=== PATIENT | male | born 1995 | race Caucasian/White ===

== ENCOUNTER 2018-11-23 05:46 | Day surgery (SDC) | payer SELFPAY, OTHER ==
[2018-11-23] VITALS (7 sets, daily range): BP systolic 108–127; BP diastolic 48–82; PULSE 71–108; RESP 14–16; TEMP 36.2–36.8; O2SAT 92–99; BMI 28.4
--- NOTE | 2018-11-23 07:25 | RAD_ITS ---
STUDY: X-RAY - RIGHT ANKLE REASON FOR EXAM: Male, 23 years old. ORIF of a trimalleolar fracture TECHNIQUE: 14 intraoperative fluoroscopic view(s) of the ankle. COMPARISON: None. FINDINGS: 14 Limited films were performed in the operating room as patient is undergone open reduction internal fixation of a trimalleolar fracture of the right ankle. After hardware has been placed, alignment at the fracture sites is anatomic, follow-up recommended to assure complete osseous union. RAD/Ankle min 3 Views IMPRESSION: ORIF of a trimalleolar fracture in the right ankle Electronically Signed: Ivan Ferrara MD at 11:35 EDT , Service support ,
[2018-11-23] MEDS: Cefazolin 2 GM in 0.9% Normal Saline 100 ML IV (07:46)
[2018-11-23] MEDS: Bupiv/Epi 0.5% Mpf 30 ML Vial (11:42)
--- NOTE | 2018-11-23 11:52 | RAD_ITS ---
STUDY: X-RAY - RIGHT ANKLE REASON FOR EXAM: Male, 23 years old. Postop from ORIF TECHNIQUE: 3 view(s) of the ankle. COMPARISON: None. FINDINGS: 3 views of the right ankle performed after patient has undergone ORIF of a trimalleolar fracture. Surgical hardware is intact and free of complication. Alignment at the fracture sites is anatomic. No demonstrated complication. Fiberglass splint supports the ankle. RAD/Ankle min 3 Views IMPRESSION: Status post ORIF of a trimalleolar right ankle fracture. Follow-up recommended to assure complete osseous union Electronically Signed: Ivan Ferrara MD at 12:46 EDT , Service support ,
--- NOTE | 2018-11-23 11:55 | DCINST_ITS ---
Discharge Activity: May Not Drive, May not drive while taking narcotic pain medications., May Not Shower, Use Walker, Use Crutches Ice area for (Minutes): 20 - Apply ice behing right knee 20 minutes of each hour while awake Weight Bearing Status: No weight bearing Keep extremity elevated above heart level: Operative Extremity Call your doctor if your incision/area has: Sudden Increased Bleeding Call your doctor if you observe: Fever of 101 or Higher, Numbness or Tingling, Change in Color, Shortness of breath, Dizziness, Chest pain, Increased palpitations (irregular heartbeat), Calf discomfort, Uncontrolled pain Cleanse incision/area with: Keep Dressing Clean & Dry Allergies/Adverse Reactions: Allergies No Known Allergies Allergy (Verified 11/15/18 08:17) Medications to take at Discharge Naproxen Sodium [Aleve] 220 mg PO PRN PRN 11/15/18 Acetaminophen 1,000 mg PO Q8 #30 tab 11/23/18 Aspirin 325 mg PO DAILY@0800 #28 tab 11/23/18 traMADol [Ultram] 50 mg PO Q4H PRN PRN 7 Days #28 tab 11/23/18 The following prescriptions were given: Acetaminophen 1,000 mg PO Q8 #30 tab Prescription Printed Aspirin 325 mg PO DAILY@0800 #28 tab Prescription Printed traMADol [Ultram] 50 mg PO Q4H PRN PRN 7 Days #28 tab PRN Reason: pain Prescription Printed Primary Care Physician: Isac Husain MD [Primary Care Provider] - Test Results: Test results from this visit will be discussed in further detail at your follow- up appointment, if applicable. Please Follow Up With: Cindy Moss DPM When: Please follow up next week at your previously scheduled post operative appt Proposed Discharge Date: 11/23/18
--- NOTE | 2018-11-23 12:04 | OP.PCM_ITS ---
Report of Operation Date of Procedure: 11/23/18 Pre-Operative Diagnosis: R trimalleolar fracture; R syndesmotic disruption Post-Operative Diagnosis: same Surgery/Procedure Performed:: R open reduction internal fixation of trimalleolar fracture with posterior fixation; R trans-syndesmotic fixation Type of Anesthesia:: General/Regional Estimated Blood Loss (mL): 200mL Description of Procedure: Indications: Pt is a 23 yo M who sustained a right ankle fracture while playing softball on November 04. He was seen the next day in the chiropractors office. He then followed up with me in clinic. At that point he did not have compression or immobilization to the RLE. He had significant edema and ecchymosis present. He was placed in a compressive dressing and posterior split. A CT scan was ordered for surgical planning. PAtient was seen by PCP for medical clearance. Pt presents today with his for surgical intervention. All risks, complications, and alternatives were discussed with the patient, and the patient signed an informed consent. No guarantees were given. Procedure: On 11/23/2018, Mynor Greene was visually and verbally identified in the preoperative holding area. The consent form was again reviewed with the patient, as were all risks, complications, and alternatives and the patient wished to proceed with the proposed surgery. The right ankle as marked as the correct operative extremity. The patient was brought to the operating room and placed on the operating room table in the lateral position with all pertinent areas padded and offloaded. The patient was placed in a circumferential lead apron. After induction by anesthesia, a surgical time out was performed and all present were in agreement. a pneumatic thigh tourniquet was then placed. At this time the right lower extremity was prepped and draped in the usual sterile fashion. after exsanguination with an esmarch the tourniquet was inflated to 300 mmHg. At this time attention was directed to the right posterolateral ankle. The fracture dimensions were then marked using intraoperative fluoroscopy. Using a lazy S incision was made starting midline between the lateral order of the Achilles tendon and posterior order of the peroneal tendons. The incision was bluntly carried deep through the subcutaneous tissues with careful attention paid to all bleeders, which were clamped and tied or bovied as necessary. All vital neurovascular structures were retracted. The FHL tendon was retracted medially and away from the posterior tibia. The posterior malleolar fracture was identified. Two [place] guidewires were placed from posterior to anterior in the tibia perpendicular to the fracture line. Per AO technique two 4.0 cannulated screws were then placed. Placement and length was confirmed on intraoperative fluoroscopy. Good fixation was noted with compression of the fracture site. Attention was then turned to the fibular fracture. The skin incision was extending proximally and the peroneals tendons were retracted. The incision was bluntly carried deep through the subcutaneous tissues with careful attention paid to all bleeders, which were clamped and tied or bovied as necessary. All vital neurovascular structures were retracted. The fibular fracture was identified and using a ronguer and #15 lade all impinging soft tissue was removed from the fracture. The fracture was then distracted and reduced which was held with a bone reduction clamp. Reduction was directly visualized and confirmed on intraoperative fluoroscopy. A 2.7mm lag screw was then placed perpendicular to the fracture per AO technique. Good fixation was noted. A fibular plate was then placed with a combination of locking and nonlocking screws. There was significant gapping of the syndesmosis noted. A malleolar reduction clamp was placed and the 3.5mm trans-syndesmotic was then placed across the tibiofibular joint and parallel to the tibiotalar joint. The malleolar clamp was removed. Attention was then turned to the medial malleolus. Using a fresh #15 blade a curvilinear incision was made over the fracture. The incision was bluntly carried deep through the subcutaneous tissues with careful attention paid to all bleeders, which were clamped and tied or bovied as necessary. All vital neurovascular structures were retracted. Two Denny guidewires were placed for the 4.0 cannulated screws. Two screws were then placed per AO technique with good fixation noted. Placement was confirmed via intraoperative fluoroscopy. The incisions were then flushed with NSS and closure was initiated. 2.0 vicrly was used for deep tissues, 3.0 vicryl for subcutaneous tissue, and 3.0 prolene for the skin. Betadine soaked adaptic was applied to the incisions with dry, sterile dressings. A multi layer compression was then applied to aid in reduction of pain and edema followed by a well padded posterior splint. Total tourniquet time was 120 minutes with immediate capillary refill noted to all digits upon deflation. Intra operative fluoroscopy was utilized throughout the case, > 1 hour, to aid in visualization and confirmation of fracture reduction and screw and plate fixations. Interpretation of the images was vital to my decision making process. The patient tolerated the procedure and anesthesia well. The patient was then transported to the postanesthesia care unit by a member of the anesthesia team and myself with all vital signs stable and neurovascular status of the right lower extremity equal to pre-operative levels. Pt received a post operative RLE block y anesthesia for pain management. At the end of the case all sponge, needle and instrument counts were found to be correct. Grafts/Implants Used: [place] plate and screws - Complications none - Admit VTE Documentation VTE Present on Admission: No VTE Mechan Device Prophylaxis: SCD's, Knee High MILENA Hose VTE Pharm Prophylaxis ordered?: Yes
== END 2018-11-23 14:55 | disposition home or self-care (01) ==
LOC: SDC 05:50 → AC 05:50
PROVIDERS: Family Provider Family Medicine; PCP Family Medicine; Referring Provider Podiatrist Foot & Ankle Surgery; Visit Provider Podiatrist Foot & Ankle Surgery
PROC: (CPT 27822; principal; 2018-11-23 07:10)
DX: S82.851A Displaced trimalleolar fracture of right lower leg, initial encounter for closed fracture (principal); S93.431A Sprain of tibiofibular ligament of right ankle, initial encounter; I89.8 Other specified noninfective disorders of lymphatic vessels and lymph nodes; R60.0 Localized edema; R03.0 Elevated blood-pressure reading, without diagnosis of hypertension; Y93.64 Activity, baseball; Y92.9 Unspecified place or not applicable; Y99.9 Unspecified external cause status
CPT/HCPCS: 01480; 27822; 73610; 76000; C1713; J7120; J2405